=== PATIENT | male | born 1970 | race Caucasian/White ===

== ENCOUNTER 2020-05-10 23:32 | Observation (INO) ==
[2020-05-11] MEDS ORDERED: 0.9 % Sodium Chloride 1,000 ML IV ONE (00:31)
[2020-05-11] MEDS ORDERED: Isovue-370 500 ML BOTTLE IVP ONE (00:31)
[2020-05-11] MEDS ORDERED: Ondansetron 4 MG/2 ML VIAL IVP ONE (00:31)
[2020-05-11] MEDS ORDERED: Haloperidol Lactate 5 MG/ML VIAL IM ONE (01:19)
[2020-05-11] MEDS ORDERED: *HR* FentaNYL (PF) 100 MCG/2 ML VIAL IVP ONE (02:59)
[2020-05-11 03:09] LABS: Basophils % 0.3 %; Eosinophils % 0.3 %; Hematocrit 45.9 % (37.5-50.1); Hemoglobin 15.9 g/dL (12.9-16.9); Immature Granulocytes % 0.4 % (0-4); Lymphocytes # 3.7 K/mcL (0.6-4.6); Mean Corpuscular HGB Conc 34.6 g/dL (31.6-35.5); Mean Corpuscular Hemoglobin 30.3 pg (28.0-33.3); Mean Corpuscular Volume 87.4 fL (83.0-100.0); Monocytes # 0.8 K/mcL (0.0-1.3); Monocytes % 6.5 %; Neutrophils # 7.1 K/mcL (1.6-8.9); Platelet Count 227 K/mcL (140-400); Red Blood Count 5.25 M/mcL (4.19-5.50); Red Cell Distribution Width 13.6 % (11.5-14.5); Segmented Neutrophils % 60.5 %; White Blood Count 11.7 K/mcL (4.3-11.1)
[2020-05-11 03:34] LABS: Alanine Aminotransferase 22 Units/L (7-52); Albumin 4.8 g/dL (3.5-5.7); Albumin/Globulin Ratio 1.7 (1.1-2.2); Alkaline Phosphatase 76 Units/L (34-104); Aspartate Amino Transferase 26 Units/L (13-39); BUN/Creatinine Ratio 13 (6-26); Bilirubin,Direct 0.2 mg/dL (0.0-0.2); Bilirubin,Indirect 0.8 mg/dL (0.0-1.0); Blood Urea Nitrogen 9 mg/dL (6-20); Carbon Dioxide 24 mEq/L (23-29); Chloride 99 mEq/L (98-107); Globulin 2.9 g/dL (2.4-3.5); Glucose 289 mg/dL (70-105); Lipase 45 Units/L (11-82); Osmolality,Calculated 295 (280-300); Potassium 3.6 mEq/L (3.5-5.1); Sodium 138 mEq/L (136-145); Total Protein 7.7 g/dL (6.4-8.9); eGFR For African Americans > 60 (> 60); eGFR For Non-African Americans > 60 (> 60)
[2020-05-11 04:42] LABS: Bilirubin,Urine Negative (Negative); Blood,Urine Negative (Negative); Clarity,Urine Clear (Clear); Color,Urine Yellow (Yellow); Glucose,Urine (UA) >=1000 mg/dL (Normal); Hyaline Casts,Urine Few per lpf (None Seen); Ketones,Urine 20 mg/dL (Negative); Leukocyte Esterase,Urine Negative (Negative); Mucus,Urine Few per lpf (None-Few); Nitrite,Urine Negative (Negative); PH,Urine 6.5 pH Units (5.0-8.0); Protein,Urine 50 mg/dL (Neg-Trace); RBC,Urine 0-3 per hpf (0-3); Specific Gravity,Urine > 1.030 (1.010-1.025); Urobilinogen,Urine Normal (Normal); WBC,Urine 0-3 per hpf (0-3)
[2020-05-11 06:26] LABS: Amphetamine Screen,Urine Negative ng/mL (Cutoff=1000); Barbiturate Screen,Urine Negative ng/mL (Cutoff=200)
[2020-05-11 06:27] LABS: Benzodiazepines Screen,Urine Positive ng/mL (Cutoff=300); Cannabinoid Screen,Urine Positive ng/mL (Cutoff = 50); Cocaine Screen,Urine Negative ng/mL (Cutoff= 300); Opiate Screen,Urine Negative ng/mL (Cutoff=300); Phencyclidine Screen,Urine Negative ng/mL (Cutoff=25)
[2020-05-11] MEDS ORDERED: *HR* Promethazine 25 MG/ML VIAL IVP PRN (06:33)
[2020-05-11] MEDS ORDERED: Naloxone 0.4 MG/ML INJ IVP PRN (06:33)
[2020-05-11] MEDS ORDERED: D5% in Water 1,000 ML IVC PRN (06:36)
[2020-05-11] MEDS ORDERED: *HR* Dextrose 50 % in Water (Vial) 50 ML VIAL IVP PRN (06:36)
[2020-05-11] MEDS ORDERED: Dextrose Gel 15 GM/37.5 ML TUBE PO PRN ×2 (06:36)
[2020-05-11] MEDS ORDERED: 0.9 % Sodium Chloride 1,000 ML IVC SCH (06:45)
[2020-05-11] MEDS ORDERED: *HR* Enoxaparin 30 MG/0.3 ML SYRINGE SQ SCH (06:45)
[2020-05-11 06:50] LABS: VBG HCO3 29 mEq/L (21-27); VBG PCO2 54 mmHg (41-51); VBG PH 7.33 pH Units (7.32-7.42); VBG PO2 107 mmHg (25-50)
[2020-05-11 08:17] LABS: Adenovirus Not Detected (Not Detect); Bordetella Pertussis Not Detected (Not Detect); Chlamydophila pneumoniae Not Detected (Not Detect); Coronavirus 229E Not Detected (Not Detect); Coronavirus HKU1 Not Detected (Not Detect); Coronavirus NL63 Not Detected (Not Detect); Coronavirus OC43 Not Detected (Not Detect); Human Metapneumovirus Not Detected (Not Detect); Human Rhinovirus/Enterovirus Not Detected (Not Detect); Influenza A Subtype 2009 H1 Not Detected (Not Detect); Influenza B Not Detected (Not Detect); Mycoplasma pneumoniae Not Detected (Not Detect); Parainfluenza Virus 1 Not Detected (Not Detect); Parainfluenza Virus 2 Not Detected (Not Detect); Parainfluenza Virus 3 Not Detected (Not Detect); Parainfluenza Virus 4 Not Detected (Not Detect); Respiratory Syncytial Virus Not Detected (Not Detect)
[2020-05-11 08:27] LABS: Folate 10.7 ng/mL (3.0-16.0)
[2020-05-11] MEDS: levETIRAcetam 250 MG TABLET PO SCH ×2 (11:03→20:56)
[2020-05-11] MEDS: Insulin LISPRO 300 UNITS/3 ML VIAL SQ SCH ×3 (11:13→16:35)
[2020-05-11 11:58] LABS: Estimated Average Glucose 143 mg/dl
[2020-05-11] MEDS: Acetaminophen 325 MG TABLET PO PRN ×2 (11:59→17:38)
[2020-05-11] MEDS ORDERED: Pantoprazole 40 MG VIAL IVP ONE (19:06)
[2020-05-11 20:06] VITALS: BP 176/111
== END 2020-05-11 22:45 | disposition left against medical advice (07) ==
LOC: 2NNU 23:32 → EMEROOARM 23:32 → SUATTDRO 05-11 08:21 → 2NNU 05-11 08:36
PROVIDERS: ADMIT Student in an Organized Health Care Education/Training Program; ATTEND Pharmacist